=== PATIENT | male | born 1970 | race Caucasian/White ===

== ENCOUNTER 2018-04-28 14:14 | Emergency (ER) | payer OTHER ==
[~2018-04-28] VITALS: Ht 188 cm; Wt 114.2 kg
[~2018-04-28 14:14] MED LIST: ALLO100T30 PO; ATOR40TA78 PO; LISI5TAB7 PO
[2018-04-28 14:35] LABS: BASOPHILS # (AUTO) 0.02 x10^3/uL (0-0.1); BASOPHILS % (AUTO) 0 % (0-1); EOSINOPHILS # (AUTO) 0.16 x10^3/uL (0-0.4); EOSINOPHILS % (AUTO) 3 % (1-7); LYMPHOCYTES # (AUTO) 1.36 x10^3/uL (1-3.4); LYMPHOCYTES % (AUTO) 22 % (22-44); MD NO; MEAN CORPUSCULAR HGB CONC 34.7 g/dL (33.2-36.2); MEAN PLATELET VOLUME 8.2 fL (7.4-10.4); MONOCYTES # (AUTO) 0.77 x10^3/uL (0.2-0.8); MONOCYTES % (AUTO) 12 % (2-9); NEUTROPHILS # (AUTO) 3.92 x10^3/uL (1.8-6.8); NEUTROPHILS % (AUTO) 63 % (42-75); PLATELET COUNT 190 x10^3/uL (130-400); RED CELL DISTRIBUTION WIDTH 13.7 % (9.4-14.8)
[2018-04-28] MEDS ORDERED: ASPIRIN 81 MG TABLET CHEW ONE (14:41)
[2018-04-28 14:47] LABS: ALBUMIN 4.3 g/dL (3.4-5.0); ANION GAP 9 mmol/L (5-15); CALCIUM 9.9 mg/dL (8.5-10.1); CHLORIDE 105 mmol/L (98-107)
[2018-04-28 14:51] LABS: TROPONIN I < 0.015 ng/mL (0.000-0.045)
[2018-04-28] MEDS ORDERED: ASPIRIN 81 MG TABLET CHEW PO ONE (15:00)
[2018-04-28 15:20] VITALS: BP 158/93
[2018-04-28] MEDS ORDERED: SODIUM CHLORIDE FLUSH 10ML SYR IVF ONE (16:00)
== END 2018-04-28 15:37 | disposition home or self-care (01) ==
LOC: ED 15:35
DX: R07.89 Other chest pain (principal); I10 Essential (primary) hypertension
CPT/HCPCS: 36415; 71045; 80048; 82040; 83880; 84484; 85025; 93005; 99284

== ENCOUNTER 2018-07-20 09:39 | Emergency (ER) | payer OTHER ==
[~2018-07-20] VITALS: Ht 188 cm; Wt 110.4 kg
[2018-07-20 10:14] LABS: BASOPHILS # (AUTO) 0.01 x10^3/uL (0-0.1); BASOPHILS % (AUTO) 0 % (0-1); EOSINOPHILS # (AUTO) 0.16 x10^3/uL (0-0.4); EOSINOPHILS % (AUTO) 2 % (1-7); LYMPHOCYTES # (AUTO) 0.94 x10^3/uL (1-3.4); LYMPHOCYTES % (AUTO) 10 % (22-44); MD NO; MEAN CORPUSCULAR HEMOGLOBIN 33.7 pg (27.5-34.5); MEAN CORPUSCULAR HGB CONC 33.6 g/dL (33.2-36.2); MEAN CORPUSCULAR VOLUME 100.2 fL (81-97); MEAN PLATELET VOLUME 7.6 fL (7.4-10.4); MONOCYTES # (AUTO) 0.56 x10^3/uL (0.2-0.8); MONOCYTES % (AUTO) 6 % (2-9); NEUTROPHILS # (AUTO) 7.56 x10^3/uL (1.8-6.8); NEUTROPHILS % (AUTO) 82 % (42-75); PLATELET COUNT 224 x10^3/uL (130-400); RED BLOOD COUNT 4.37 x10^6/uL (4.38-5.82); RED CELL DISTRIBUTION WIDTH 15.6 % (9.4-14.8)
[2018-07-20 10:28] LABS: ALANINE AMINOTRANSFERASE 115 U/L (12-78); ALBUMIN 4.1 g/dL (3.4-5.0); ANION GAP 10 mmol/L (5-15); CALCIUM 8.7 mg/dL (8.5-10.1); CHLORIDE 105 mmol/L (98-107); CREATININE 0.99 mg/dL (0.7-1.3)
[2018-07-20 10:33] LABS: ALKALINE PHOSPHATASE 99 U/L (45-117); BILIRUBIN,TOTAL 0.5 mg/dL (0.2-1.0); TOTAL PROTEIN 7.8 g/dL (6.4-8.2); TROPONIN I < 0.015 ng/mL (0.000-0.045)
[2018-07-20] MEDS ORDERED: MAALOX/HYOSCYAMINE/LIDOCAINE 45 ML BTL ONE (11:23)
[2018-07-20] MEDS ORDERED: ONDANSETRON 2MG/ML, 2ML ONE (11:23)
[2018-07-20] MEDS ORDERED: LORazepam 2 MG/ML, 1ML ONE (11:24)
[2018-07-20] MEDS ORDERED: MAALOX/HYOSCYAMINE/LIDOCAINE 45 ML BTL PO ONE (11:30)
[2018-07-20] MEDS ORDERED: ONDANSETRON 2MG/ML, 2ML IVPush ONE (11:30)
[2018-07-20] MEDS ORDERED: LORazepam 2 MG/ML, 1ML IVPush ONE (11:30)
--- NOTE | 2018-07-20 11:37 | NUR ---
ASSUMED CARE OF PT. PT HERE FOR RUQ ABD PAIN WITH INTERMITTENT N/V OVER THE LAST 2 MONTHS. PT A DAILY DRINKER. HAS ENDOSCOPY IN A COUPLE OF WEEKS. MILD AMOUNT OF DISTRESS AND DISCOMFORT NOTED. BREATHING REGULAR AND UNLABORED. IV STARTED. PT MEDICATED PER JUL. RIGHTS VERIFIED PRIOR. 3 P'S ADDRESSED. POC DISCUSSED.
--- NOTE | 2018-07-20 11:42 | NUR ---
CT ON THE WAY
[2018-07-20] MEDS ORDERED: OMNIPAQUE 350 MG/ML, 100ML BOTTLE ONE (11:51)
[2018-07-20 12:37] VITALS: BP 135/86
--- NOTE | 2018-07-20 12:55 | NUR ---
PT GIVEN D/C PAPERWORK. PT VERBALIZED UNDERSTANDING. PT AMBULATED OUT OF DEPARTMENT.
== END 2018-07-20 13:23 | disposition home or self-care (01) ==
LOC: ED 12:18
DX: R10.13 Epigastric pain (principal); R10.12 Left upper quadrant pain; R11.2 Nausea with vomiting, unspecified; I10 Essential (primary) hypertension; E78.5 Hyperlipidemia, unspecified
CPT/HCPCS: 36415; 71045; 74177; 76700; 80053; 83690; 83880; 84484; 85025; 93005; 96374; 96375; 99284; J2060; J2405; Q9967

== ENCOUNTER → 2018-07-22 | Outpatient (CLI) | payer OTHER ==
[~2018-07-22] MED LIST changes: +SINCALIDE (KINEVAC) 5 MCG ONE
== END | disposition home or self-care (01) ==
LOC: PETCFH 09:45
PROVIDERS: ATTEND Emergency Medicine
DX: R10.9 Unspecified abdominal pain (principal)
CPT/HCPCS: 78227; A9537; J2805

== ENCOUNTER 2019-07-05 21:43 | Emergency (ER) | payer OTHER ==
[~2019-07-05] VITALS: Ht 188 cm; Wt 110.0 kg
[~2019-07-05 21:43] MED LIST changes: -SINCALIDE (KINEVAC) 5 MCG ONE
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
[2019-07-05] MEDS ORDERED: AMLO10TA8 PO (22:04)
[2019-07-05 22:23] LABS: BASOPHILS # (AUTO) 0.03 x10^3/uL (0-0.1); BASOPHILS % (AUTO) 1 % (0-1); EOSINOPHILS # (AUTO) 0.13 x10^3/uL (0-0.4); EOSINOPHILS % (AUTO) 4 % (1-7); LYMPHOCYTES # (AUTO) 1.15 x10^3/uL (1-3.4); LYMPHOCYTES % (AUTO) 36 % (22-44); MD NO; MEAN CORPUSCULAR HEMOGLOBIN 33.2 pg (27.5-34.5); MEAN CORPUSCULAR HGB CONC 34.6 g/dL (33.2-36.2); MEAN CORPUSCULAR VOLUME 95.9 fL (81-97); MEAN PLATELET VOLUME 7.6 fL (7.4-10.4); MONOCYTES # (AUTO) 0.37 x10^3/uL (0.2-0.8); MONOCYTES % (AUTO) 12 % (2-9); NEUTROPHILS # (AUTO) 1.54 x10^3/uL (1.8-6.8); NEUTROPHILS % (AUTO) 48 % (42-75); PLATELET COUNT 181 x10^3/uL (130-400); RED BLOOD COUNT 4.35 x10^6/uL (4.38-5.82); RED CELL DISTRIBUTION WIDTH 13.9 % (9.4-14.8)
[2019-07-05] MEDS ORDERED: LORazepam 1MG TABLET PO ONE (22:30)
[2019-07-05 22:32] LABS: ALBUMIN 4.1 g/dL (3.4-5.0); ANION GAP 9 mmol/L (5-15); CALCIUM 8.8 mg/dL (8.5-10.1); CHLORIDE 106 mmol/L (98-107)
[2019-07-05 22:35] LABS: ALANINE AMINOTRANSFERASE 46 U/L (12-78); ALKALINE PHOSPHATASE 82 U/L (45-117); BILIRUBIN,TOTAL 0.4 mg/dL (0.2-1.0); CREATININE 1.36 mg/dL (0.7-1.3); TOTAL PROTEIN 7.8 g/dL (6.4-8.2)
[2019-07-05 22:35] LABS: AMPHETAMINE SCREEN, URINE Negative (Negative); BARBITURATE SCREEN, URINE Negative (Negative); BENZODIAZEPINE SCREEN, URINE Negative (Negative); CANNABINOID SCREEN, URINE Positive (Negative); COCAINE SCREEN, URINE Negative (Negative); METHADONE SCREEN, URINE Negative (Negative); OPIATE SCREEN, URINE Negative (Negative)
[2019-07-05 22:36] LABS: SALICYLATE LEVEL < 1.7 mg/dL (2.8-20.0)
[2019-07-05] MEDS ORDERED: LORazepam 1MG TABLET ONE (22:43)
--- NOTE | 2019-07-05 22:47 | NUR ---
pt medicated for anxiety per emar
--- NOTE | 2019-07-05 23:18 | NUR ---
PT MOVED TO RM 39. RECEIVED RPT FROM GUIDO PINEDA. PT IN SAFE ROOM, SITTER AT DOORWAY.
--- NOTE | 2019-07-06 00:25 | NUR ---
PT RESTING WITH EYES CLOSED. SITTER IN DOORWAY.
--- NOTE | 2019-07-06 01:25 | NUR ---
PT RESTING WITH EYES CLOSED. SITTER IN DOORWAY.
--- NOTE | 2019-07-06 02:25 | NUR ---
PT RESTING WITH EYES CLOSED. SITTER IN DOORWAY.
--- NOTE | 2019-07-06 03:25 | NUR ---
PT RESTING WITH EYES CLOSED. SITTER IN DOORWAY.
--- NOTE | 2019-07-06 04:25 | NUR ---
PT RESTING WITH EYES CLOSED. SITTER IN DOORWAY.
[2019-07-06 06:18] VITALS: BP 141/88
--- NOTE | 2019-07-06 07:09 | NUR ---
REPORT RECEIVED FROM GUIDO SPENCER. PT RESTING ON HOSPITAL BED. NADN. ROOM SECURE. SITER AT BEDSIDE.
--- NOTE | 2019-07-06 07:12 | NUR ---
BREAKFAST TRAY ORDERED.
--- NOTE | 2019-07-06 07:28 | NUR ---
PT'S GER CALLED TO CHECK ON PT. STATES SHE WILL BE VISITING TODAY.
--- NOTE | 2019-07-06 07:52 | NUR ---
PT BREATHYLIZED- 0.076. SOC INITIATED, TELEPSYCH PLACED AT BEDSIDE. PT PROVIDED WITH BREAKFAST. PT DENYING SI/HI. ROOM SECURE. SITTER AT BEDSIDE.
--- NOTE | 2019-07-06 08:53 | NUR ---
REPORT GIVEN TO JENA QUINTEROS AT THIS TIME. STATES HE IS CALLING IN TO SPEAK WITH PT NOW AND STATES HE WILL LIKELY CALL PT'S WELL.
--- NOTE | 2019-07-06 09:05 | NUR ---
TELEPSYCH MD SPEAKING WITH PT NOW. ROOM SECURE. SITTER AT BEDSIDE. PT RESTING ON HOSPITAL BED.
--- NOTE | 2019-07-06 09:36 | NUR ---
PT'S AT BEDSIDE. ROOM SECURE. SITTER AT BEDSIDE.
--- NOTE | 2019-07-06 09:38 | NUR ---
SOC MD CALLED THIS RN- STATES HE ATTEMPTED TO CALL WITH NO ANSWER. THIS RN SPOKE WITH AT BEDSIDE AND SHE STATES SHE WILL ANSWER THE DOCTOR'S CALL AT THIS TIME.
--- NOTE | 2019-07-06 09:50 | NUR ---
REPORT GIVEN TO GUIDO CARMEN AND GUIDO LYNN.
--- NOTE | 2019-07-06 09:54 | NUR ---
REPORT RECEIVED FROM GUIDO CARR. [facility]
[2019-07-06] MEDS ORDERED: LORazepam 1MG TABLET ONE (10:32)
[2019-07-06] MEDS ORDERED: LORazepam 1MG TABLET PO ONE (11:00)
[2019-07-06] MEDS ORDERED: LORazepam 2 MG/ML, 1ML IVPush ONE (11:00)
--- NOTE | 2019-07-06 12:48 | NUR ---
PT WAS CLEARED FOR DC BY TELE PSYCH. HOWEVER, PT AND FELT IT WAS BETTER IF HE WAS ADMITTED FOR ALCHOLISM. THE CALLED [facility] AND WAS TOLD OVER THE PHONE THAT THEY WOULD ADMIT HIM. DR JONES ALSO TOLD PT AND THAT SHE WOULD ADMIT HIM HERE FOR ALCOHOL WITHDRAWALS. PT AND WERE GIVEN OPTION TO STAY HERE OR GO TO [facility] - THEY DECIDED TO LEAVE AND GO STRAIGHT TO [facility] FROM HERE.
--- NOTE | 2019-07-06 12:51 | NUR ---
TIFFANY STRIP MILL OPERATOR, ALSO EVUALTED PT AT ABOUT 1150.
== END 2019-07-06 12:53 | disposition home or self-care (01) ==
LOC: ED 07-06 00:18
DX: F33.2 Major depressive disorder, recurrent severe without psychotic features (principal); F10.121 Alcohol abuse with intoxication delirium; E78.5 Hyperlipidemia, unspecified; I10 Essential (primary) hypertension; Y90.9 Presence of alcohol in blood, level not specified
CPT/HCPCS: 36415; 80053; 80307; 85025; 99284